=== PATIENT | female | born 1950 | race Caucasian/White ===

== ENCOUNTER 2021-01-04 16:15 | Outpatient (CLI) | payer MEDICARE, OTHER | END 2021-01-04 16:16 | disposition home or self-care (01) | LOC: CSHULT 16:15 | PROVIDERS: ATTEND Family Medicine | DX: R10.11 Right upper quadrant pain (principal); I10 Essential (primary) hypertension; K82.8 Other specified diseases of gallbladder; K82.4 Cholesterolosis of gallbladder | CPT/HCPCS: 93975 ==